=== PATIENT | female | born 1950 | race Caucasian/White ===

== ENCOUNTER 2021-02-23 09:05 | Outpatient (CLI) | payer MEDICARE, SELFPAY | END 2021-02-23 09:06 | disposition home or self-care (01) | DX: C25.3 Malignant neoplasm of pancreatic duct (principal); R53.83 Other fatigue | CPT/HCPCS: 96523 ==

== ENCOUNTER 2022-01-25 14:22 | Emergency (ER) | payer MEDICARE, SELFPAY ==
--- NOTE | ~2022-01-25 | XR_ITS ---
EXAMINATION: XR pelvis 1-2V DATE: 01/25/2022 15:28 INDICATION: Right hip pain. TECHNIQUE: An anteroposterior view of the pelvis was obtained. COMPARISON: None. FINDINGS: Bone alignment is normal. No fracture. There is mild osteoarthritis of the hips. IMPRESSION: 1. Mild osteoarthritis of the hips. Reviewed, dictated and finalized at location A.
--- NOTE | ~2022-01-25 | XR_ITS ---
EXAMINATION: XR hip RT min 2V DATE: 01/25/2022 15:28 INDICATION: Right hip pain. TECHNIQUE: 3 views of right hip were obtained. COMPARISON: None. FINDINGS: Bone alignment is normal. No fracture. There is mild right hip osteoarthritis. IMPRESSION: 1. Mild right hip osteoarthritis. Reviewed, dictated and finalized at location A.
[2022-01-25 14:37] VITALS: BP 94/76; PULSE 63; RESP 16; TEMP 37.4; O2SAT 98
[2022-01-25 14:42] VITALS: BP 94/76; PULSE 63; RESP 16; TEMP 37.4; O2SAT 98
--- NOTE | 2022-01-25 14:47 | ED.LOWEXIN ---
HPI - Extremity Injury (Lower) General Chief Complaint: Extremity Injury, Lower Stated Complaint: right side injury Time Seen by Provider: 01/25/22 15:00 Source: patient, family, RN notes reviewed and old records reviewed Mode of arrival: wheelchair Limitations: no limitations History of Present Illness HPI Narrative: 71 year old female accompanied by spouse presents to express care via wheelchair with complaints of pain to right hip and right groin region after getting her right foot caught and twisted leg and fell onto the right hip. Patient is visiting here from [facility] and staying at [facility] visiting family that lives in area. Patient states that she is unable to put any weight on her right leg and she can't lift her leg up when in sitting position. Patient verbalizes history of osteoporosis with no previous fracture history. MD complaint: hip injury (pelvis with pain to right groin) Onset (ago): hour(s) (at 1330 today) Injury: Right: hip Type of Injury: blunt Place: street/outdoors Severity scale (1-10): 3 (3/10) Treatments prior to arrival: cold therapy and other (tylenol) Related Data Home Medications Medication Instructions Recorded Confirmed Multi Vitamin 1 tab-cap PO DAILY 01/25/22 01/25/22 bupropion HCl 300 mg 24 hr tablet, 300 mg PO DAILY 01/25/22 01/25/22 extended release escitalopram oxalate 10 mg tablet 10 mg PO DAILY 01/25/22 01/25/22 esomeprazole magnesium 40 mg 40 mg PO DAILY 01/25/22 01/25/22 capsule,delayed release [id number] 8 cap PO DAILY 01/25/22 01/25/22 36,000-114,000-180,000 unit capsule,delay rel (Creon) losartan 100 mg tablet 100 mg PO DAILY 01/25/22 01/25/22 potassium citrate 99 mg capsule 99 mg PO DAILY 01/25/22 01/25/22 Allergies Allergy/AdvReac Type Severity Reaction Status Date / Time No Known Allergies Allergy Verified 01/25/22 14:37 Review of Systems Review of Systems: CONSTITUTIONAL: Denies fever, chills, or sweats. EYES: Denies visual changes, redness, or discharge. ENT: Denies rhinorrhea, congestion, sore throat, or otalgia. CARDIOVASCULAR: Denies chest pain, palpitations, or edema. RESPIRATORY: Denies cough or dyspnea. GASTROINTESTINAL: Denies abdominal pain, nausea, vomiting, or diarrhea. GENITOURINARY: Denies dysuria or hematuria. SKIN: Denies rash or itching. MUSCULOSKELETAL: Denies back pain,positive for right hip pain and groin pain right , or myalgia. NEUROLOGIC: Denies headache, numbness, or weakness. PSYCHIATRIC: Positive for anxiety or depression. 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 There is no relevant family history pertinent to the presenting complaint Exam Narrative: GENERAL: Well-appearing, well-nourished, and in some acute discomfort with movement of right hip HEAD: Normocephalic, atraumatic. EYES: PERRLA and EOMI. ENT: Nares clear, no rhinorrhea or epistaxis. Mucous membranes moist.TM's normal with good light reflux, NECK: Supple. no lymphadenopathy CHEST: Clear to auscultation. No respiratory distress.SAO2 98% on room air HEART: Regular rate and rhythm. No murmur heard. Normal periphera
== END 2022-01-25 15:43 | disposition home or self-care (01) ==
PROVIDERS: Emergency Provider Registered Nurse
DX: S70.01XA Contusion of right hip, initial encounter (principal); W01.0XXA Fall on same level from slipping, tripping and stumbling without subsequent striking against object, initial encounter; I10 Essential (primary) hypertension; M81.0 Age-related osteoporosis without current pathological fracture
CPT/HCPCS: 72170; 73502; 99213; G0463

== ENCOUNTER 2022-01-31 08:54 | Outpatient (RCR) | payer MEDICARE, SELFPAY | END 2022-05-01 23:59 | disposition home or self-care (01) | LOC: ANHVASCINF 08:54 | DX: Z45.2 Encounter for adjustment and management of vascular access device (principal); C25.3 Malignant neoplasm of pancreatic duct; E55.9 Vitamin D deficiency, unspecified; R53.83 Other fatigue | CPT/HCPCS: 96523 ==